=== PATIENT | female | born 1985 | race African-American/Black ===

== ENCOUNTER 2020-05-27 13:12 | Emergency (ER) | payer OTHER ==
[~2020-05-27] VITALS: Ht 182.9 cm; Wt 93.0 kg
[2020-05-27 13:52] VITALS: BP 147/99
[2020-05-27] MEDS ORDERED: KETOROLAC TROMETH 60MG/2ML VIAL IM ONE (14:15)
== END 2020-05-27 14:40 | disposition home or self-care (01) ==
LOC: ER 13:12
DX: M43.6 Torticollis (principal); M62.838 Other muscle spasm
CPT/HCPCS: 96372; 99283; J1885